=== PATIENT | female | born 1995 | race Caucasian/White ===

== ENCOUNTER 2018-01-24 22:44 | Emergency (ER) | payer OTHER ==
[~2018-01-24] VITALS: Ht 154.9 cm; Wt 55.9 kg
[2018-01-24 23:41] LABS: HEMATOCRIT 37.4 % (36.0-46.0); MCH 30.9 PG (29.0-34.0); MCHC 34.8 G/DL (30.0-36.0); MCV 88.8 FL (83-99); PLATELET COUNT 248 K/uL (156-360); RBC DIS.WIDTH-CV 11.4 % (11.8-14.6); RBC DIS.WIDTH-SD 36.5 % (39-53); RED BLOOD COUNT 4.21 M/uL (3.80-5.20); WHITE BLOOD COUNT 9.9 K/uL (4.1-10.2)
[2018-01-24 23:52] LABS: CHLORIDE 108 mEq/L (99-109); POTASSIUM 3.9 mEq/L (3.7-5.4); SODIUM 140 mEq/L (136-147)
[2018-01-24 23:54] LABS: GLUCOSE 109 mg/dL (70-99)
[2018-01-24 23:58] LABS: CREATININE 0.8 mg/dL (0.6-1.3); GFR ESTIMATE (CALCULATED) > 59 mL/min/
[2018-01-24] MEDS ORDERED: KEFLEX500 MG PO (23:58)
[2018-01-24 23:59] LABS: UREA NITROGEN (BUN) 7 mg/dL (9-23)
[2018-01-25 00:15] VITALS: BP 111/75
== END 2018-01-25 00:16 | disposition home or self-care (01) ==
LOC: EME 22:44
PROVIDERS: Physician Assistant
DX: L03.115 Cellulitis of right lower limb (principal)
CPT/HCPCS: 80048; 83605; 85027; 87040; 99281; 99284; J0696; J1885; J7030